=== PATIENT | female | born 1935 | race Caucasian/White ===

== ENCOUNTER 2024-12-05 08:52 | Inpatient (IN) | payer MEDICARE, OTHER ==
[~2024-12-05] VITALS: Ht 160 cm; Wt 67.6 kg
[2024-12-05 09:29] LABS: PLATELET COUNT (AUTO) 228 K/uL (150-450); RED BLOOD CELL COUNT(AUTO) 4.42 MIL/uL (4.0-5.2); RED CELL DISTRIBUTION WIDTH 13.9 % (11.5-15.0); WHITE BLOOD COUNT (AUTO) 8.3 K/uL (4.3-11.0)
[2024-12-05] MEDS ORDERED: HALOPERIDOL LACTATE INJ 5 MG/ML VIAL ONE (09:29)
[2024-12-05] MEDS: HALOPERIDOL LACTATE INJ 5 MG/ML VIAL IM ONE (09:35)
[2024-12-05 10:09] LABS: CALCIUM, SERUM 10.2 mg/dL (8.5-10.1); CREATININE 1.2 mg/dL (0.6-1.3); SODIUM SERUM 136 mmol/L (136-145); UREA NITROGEN, BLOOD 36 mg/dL (7-18)
[2024-12-05 10:15] LABS: ALCOHOL, BLOOD < 3 mg/dL (0-10); ASPARTATE AMINOTRANSFERASE 14 U/L (15-37); TOTAL PROTEIN, SERUM 7.3 g/dL (6.4-8.2)
[2024-12-05 11:29] LABS: APPEARANCE,URINE CLEAR (CLEAR); BLOOD, URINE NEGATIVE Ery/uL (NEGATIVE); LEUKOCYTE ESTERASE ,URINE 3+ (NEGATIVE); NITRITE, URINE NEGATIVE (NEGATIVE); UGLUCOSE NEGATIVE (NEGATIVE)
[2024-12-05 11:30] LABS: ADD URINE CULTURE YES; SQUAMOUS EPITHELIAL CELL,UR Rare /HPF (None Seen)
[2024-12-05 11:57] LABS: AMPHETAMINE, URINE NEGATIVE (NEGATIVE); BARBITURATE, URINE NEGATIVE (NEGATIVE); BENZODIAZEPINE, URINE NEGATIVE (NEGATIVE); CANNABINOID, URINE NEGATIVE (NEGATIVE); COCCAINE, URINE NEGATIVE (NEGATIVE); OPIATE, URINE NEGATIVE (NEGATIVE)
[2024-12-05] MEDS ORDERED: CEPHALEXIN MONOHYDRATE 500 MG CAPSULE PO ONE (12:07)
[2024-12-05] MEDS: CEPHALEXIN MONOHYDRATE 500 MG CAPSULE PO ONE (12:21)
[2024-12-05] MEDS: MIDAZOLAM HCL 2 MG/2ML VIAL IM ONE (13:00)
[2024-12-05] MEDS ORDERED: ACETAMINOPHEN 325 MG TABLET PO PRN (18:30)
[2024-12-05] MEDS: BLOOD SUGAR DIAGNOSTIC 1 EACH STRIP IN ONE (18:30)
[2024-12-05] MEDS ORDERED: MAG HYDROX/AL HYDROX/SIMETH 30 ML UDC PO PRN (18:30)
[2024-12-05] MEDS ORDERED: MAGNESIUM HYDROXIDE 30 ML UDC PO PRN (18:30)
[2024-12-05 19:30] VITALS: BP 132/79; TEMP 98; O2SAT 98
[2024-12-05 23:17] VITALS: BP 127/75; TEMP 98; O2SAT 98
[2024-12-06 08:00] VITALS: BP 149/86; TEMP 97.7; O2SAT 96
[2024-12-06 08:08] LABS: CALCIUM, SERUM 10.0 mg/dL (8.5-10.1); CREATININE 1.0 mg/dL (0.6-1.3); SODIUM SERUM 138.0 mmol/L (136-145); UREA NITROGEN, BLOOD 25.0 mg/dL (7-18)
[2024-12-06 08:09] LABS: ASPARTATE AMINOTRANSFERASE 19.0 U/L (15-37); TOTAL PROTEIN, SERUM 6.6 g/dL (6.4-8.2)
[2024-12-06 08:11] LABS: LDL 163 mg/dL (0-99)
[2024-12-06] MEDS: CEPHALEXIN MONOHYDRATE 500 MG CAPSULE PO SCH (09:00)
[2024-12-06] MEDS: LORAZEPAM 1 MG TABLET PO PRN (11:29)
[2024-12-06 16:23] VITALS: BP 140/85; TEMP 97.9; O2SAT 98
[2024-12-06 18:59] LABS: CREATININE 1.1 mg/dL (0.6-1.3)
[2024-12-06 20:00] VITALS: BP 140/76; TEMP 98.2; O2SAT 96
[2024-12-07 08:28] VITALS: BP 124/71; TEMP 97.8; O2SAT 98
[2024-12-07] MEDS: ESCITALOPRAM OXALATE (10 MG) 10 MG TABLET PO SCH (09:32)
[2024-12-07 16:09] VITALS: BP 126/83; TEMP 97.8; O2SAT 99
[2024-12-07 20:53] VITALS: BP 124/80; TEMP 98; O2SAT 99
[2024-12-08 08:00] VITALS: BP 154/98; TEMP 98.6; O2SAT 98
[2024-12-08 15:17] VITALS: BP 124/86; TEMP 97.9; O2SAT 96
[2024-12-08] MEDS: ZOLPIDEM TARTRATE 5 MG TABLET PO PRN (20:13)
[2024-12-08 20:53] VITALS: BP 137/92; TEMP 98.2; O2SAT 96
[2024-12-09 08:00] VITALS: BP 133/91; TEMP 98.6; O2SAT 98
[2024-12-09 17:06] VITALS: BP 141/85; TEMP 97.6; O2SAT 98
[2024-12-09 19:52] VITALS: BP 157/78; TEMP 97.7; O2SAT 100
[2024-12-10 08:00] VITALS: BP 131/83; TEMP 98.6; O2SAT 96
[2024-12-10 16:00] VITALS: BP 120/91; TEMP 97.8; O2SAT 97
[2024-12-10 20:19] VITALS: BP 126/78; TEMP 97.8; O2SAT 100
[2024-12-11 08:00] VITALS: BP 121/60; TEMP 98.2; O2SAT 98
== END 2024-12-11 15:15 | DRG 885 ==
LOC: ER 08:57 → GPS 17:39
PROVIDERS: ADMIT Psychiatry & Neurology Psychiatry; ATTEND Nurse Practitioner Acute Care
DX: F39 Unspecified mood [affective] disorder (principal); N39.0 Urinary tract infection, site not specified; F01.53 Vascular dementia, unspecified severity, with mood disturbance; F01.52 Vascular dementia, unspecified severity, with psychotic disturbance; E44.1 Mild protein-calorie malnutrition; F01.54 Vascular dementia, unspecified severity, with anxiety; F29 Unspecified psychosis not due to a substance or known physiological condition; Z73.6 Limitation of activities due to disability; B96.89 Other specified bacterial agents as the cause of diseases classified elsewhere; E78.5 Hyperlipidemia, unspecified; E88.09 Other disorders of plasma-protein metabolism, not elsewhere classified; F41.9 Anxiety disorder, unspecified
CPT/HCPCS: 36415; 71045-TC; 80048-TC; 80053-TC; 80061-TC; 80076-TC; 81001; 82565-TC; 85025-TC; 87086-TC; G0480; J1630